=== PATIENT | female | born 1955 | race Caucasian/White ===

== ENCOUNTER 2022-10-11 14:13 | Outpatient (CLI) | payer MEDICARE, BC ==
[2022-10-11] MEDS ORDERED: iohexol 350MG/ML 100ml bottle IV ONE (14:18)
== END 2022-10-11 23:59 | disposition home or self-care (01) ==
LOC: RAD 14:13
PROVIDERS: ATTEND Thoracic Surgery (Cardiothoracic Vascular Surgery)
DX: N20.0 Calculus of kidney (principal); I70.0 Atherosclerosis of aorta; N32.89 Other specified disorders of bladder; K76.89 Other specified diseases of liver; E27.8 Other specified disorders of adrenal gland
CPT/HCPCS: 71275; 74174; J3490; Q9967